=== PATIENT | male | born 1955 | race Two or more races ===

== ENCOUNTER 2024-12-17 07:48 | Inpatient (IN) | payer OTHER ==
[~2024-12-17] VITALS: Ht 162.6 cm; Wt 123.5 kg
[2024-12-17] VITALS (14 sets, daily range): BP systolic 122–155; BP diastolic 54–76; PULSE 73–91; RESP 12–20; TEMP 97.6–98.3; O2SAT 91–99
[2024-12-17] MEDS: BUPIVACAINE W/ EPINEPH 0.5% INJ 50ML MDV IJ ONE (08:01)
[2024-12-17] MEDS: VANCOMYCIN HCL 1000 MG VL ONE (08:02)
[2024-12-17] MEDS: LIDOCAINE W/ EPINEPHRINE 1% 20ML VIAL ONE (08:31)
[2024-12-17] MEDS ORDERED: KETOROLAC TROMETH 30 MG/ML 1ML VIAL ONE (08:50)
[2024-12-17] MEDS ORDERED: MORPHINE SULF PF 5 MG/10 ML VIAL ONE ×2 (08:50→09:00)
[2024-12-17] MEDS ORDERED: fentaNYL CITRATE 100 MCG/2 ML VL ONE (09:00)
[2024-12-17] MEDS ORDERED: PROPOFOL 10 MG/ML 20 ML IV ONE ×2 (09:01→10:27)
[2024-12-17] MEDS: ceFAZolin 2 GM/D5W50ml 50 ML IV ONE (09:05)
[2024-12-17] MEDS: CEFEPIME 1GM/ 50ML 50 ML IV ONE (09:10)
[2024-12-17] MEDS: TRANEXAMIC ACID 20 ML ONE (09:15)
[2024-12-17] MEDS ORDERED: MIDAZOLAM HCL 2MG/2ML 2ml VIAL (1mg/ml) ONE (09:21)
[2024-12-17] MEDS ORDERED: METOCLOPRAMIDE HCL 5MG/ml INJ 2ml VIAL ONE (09:24)
[2024-12-17] MEDS ORDERED: ONDANSETRON HCL 4 MG/2 ML VIAL ONE (09:24)
[2024-12-17] MEDS ORDERED: ePHEDrine SULFATE 50 MG/ML AMP ONE (09:39)
--- NOTE | 2024-12-17 11:09 | DVHOP2 ---
Operative Report - 2 Report Details Date: 12/17/24 Preop Diagnosis: Right knee degenerative arthritis Postop Diagnosis: Right knee degenerative arthritis Surgeon: Annamaria Pink MD Frame Stripper: Ave ROPER Anesthesiologist: Jg neal CRNA Anesthesia: Regional Drains: Amalia closed wound suction Implant: RenéJoy in power knee size 10 femur PS size nine tibia size 10 poly Consent: The patient was informed of the risks and benefits of the procedure. These include but are not limited to complications of anesthesia, postoperative infection, incomplete relief of symptoms, recurrence of symptoms, damage to blood vessels, nerves and tendons, deep venous thrombosis, pulmonary embolism and possible need for repeat surgery in the future. Complications: None Estimated Blood Loss: 25 cc Fluids: See anesthesia record Findings: Varus deformity, osteophytes, denuded cartilage with eburnated bone Indications for Surgery: Right knee degenerative arthritis with severe pain and functional impairment despite nonoperative management Name of Procedure Performed Right total knee arthroplasty Procedure Details Procedure Details: The patient was brought to the operating room and placed on the table in the supine position after being given spinal anesthetic with adequate analgesia obtained. Surgical timeout was performed verifying patient, laterality and procedure Preop patient received IV cefepime IV Ancef and IV tranexamic acid. Tourniquet was applied to the lower extremity. Extremity was elevated, exsanguinated Esmarch, and tourniquet inflated. Lower extremity was prepped and draped in sterile fashion. Midline incision was made followed by medial arthrotomy. I exposed the anterior medial and lateral tibial plateau and the anterior distal femur. Bovie and aqua mantis were used for hemostasis. I excised the anterior meniscal tissue with Bovie. I excised a portion of the fat pad with Bovie. The patella was everted and the knee flexed. I drilled the distal femur and suctioned the hole to reduce the risk of fat emboli. I inserted intramedullary guide with 5 degree valgus setting. I pinned the distal femoral cutting block anteriorly. Intramedullary north was removed. Distal femoral cut was made and the block removed. I brought my attention to the tibia setting up the external cutting jig for the tibia paying attention to slope, rotation and varus valgus alignment. I set the depth and pinned the block. I used the external alignment north to aid in checking alignment. Bone cut was made and bone removed releasing soft tissue attachments with Bovie. Cutting block removed. I then checked the extension gap and deemed adequate and removed the femur and tibia pins. I flexed the knee and applied the femoral sizing guide to the femur. I checked the size and external rotation setting at 90 degrees to Whitesides line and checking the epicondylar axis. I drilled the holes then removed the sizing guide and pin. I then tapped on the 4 in 1 cutting block and checked with the magdalena wing anteriorly to make sure that I would not notch then pinned the block. Cuts were made and the block and pins were removed. Bone was removed with curved osteotome. I used a rongeur to remove any remaining osteophytes at the femur and tibia. I then used a lamina stone spreader operator to open up the back alternating between the medial and lateral side. Any remaining meniscal tissue was excised with scalpel. I used curved osteotome, curette and rongeur to remove any posterior osteophytes. I prophylactically coagulated w ith aqua mantis. I then tapped on the template for the box cut and pinned it. Box cut was made and bone removed. Template and pin removed. I then tapped on the femoral trial. I then brought my attention back to the tibia sizing it. I used the external alignment north to make sure that rotation and alignment were good. I made a Bovie loraine at the tibial tray loraine identifying rotation for later use. I tried various tibial polytrials. The patella tracked nicely without thumb pressure. I removed the trials. I pinned the tray and used the reamer and keel punch. The implants were brought into the field while bone preparation was started. I used both normal saline irrigation and the CarboJet to prepare the bone. Once cement was ready I applied cement to the tibial implant and tibial bone tapped it on and removed excess cement in usual fashion. In similar fashion I tapped on the femoral implant. I inserted the trial polyethylene and brought the knee into 30 degrees flexion. I irrigated with bactisurge irrigant. Once cement cured, I checked stability and range of motion as well as patella tracking. tourniquet was released and hemostasis maintained with aqua mantis. I inserted the polyethylene and again checked stability. I used a 2 grams of vancomycin half of which was placed deep and half superficial. I repaired the extensor mechanism with the knee in flexion with #1 Ethibond interrupted [id number]. Deep subcutaneous tissue was closed with 0 Vicryl. Superficial subcutaneous tissue was closed with 2-0 vicryl interrupted. Skin was closed with robert. I then applied the [amalia closed wound suction]. Patient tolerated the procedure well and was brought to recovery room in stable condition. Condition Stable Disposition Still a Patient ANNAMARIA PINK MD Dec 17, 2024 11:09
[2024-12-17] MEDS ORDERED: ACETAMINOPHEN 325 MG TAB PO PRN (11:15)
[2024-12-17] MEDS: BUPIVACAINE 0.25% INJ 50ML VIAL ONE (11:51)
[2024-12-17] MEDS: ONDANSETRON HCL 4 MG/2 ML VIAL ONE (12:39)
[2024-12-17] MEDS: ONDANSETRON HCL 4 MG/2 ML VIAL IV PRN (12:39)
[2024-12-17] MEDS ORDERED: NALOXONE HCL 0.4 MG/ML VIAL IV PRN (12:45)
--- NOTE | 2024-12-17 12:54 | DVH ---
Indication: postop Technique: 3 views of the right knee Comparison: None FINDINGS/IMPRESSION: Total right knee arthroplasty in anatomic alignment. Expected postoperative changes including surroun ding soft tissue emphysema and edema. Moderate suprapatellar effusion.
[2024-12-17] MEDS: METOCLOPRAMIDE HCL 5MG/ml INJ 2ml VIAL IV PRN (13:06)
[2024-12-17] MEDS: D5W/LACTATED RINGERS 1,000 ML IV SCH (13:07)
[2024-12-17] MEDS: KETOROLAC TROMETH 30 MG/ML 1ML VIAL IV SCH (13:30)
[2024-12-17] MEDS: ACETAMINOPHEN 325 MG TAB PO SCH (13:30)
[2024-12-17] MEDS ORDERED: ceFAZolin 2 GM/D5W50ml 50 ML IV SCH (14:00)
[2024-12-17] MEDS: diphenhdrAMINE HCL 50 MG/1 ML VL IV PRN (14:04)
[2024-12-17] MEDS: ceFAZolin 2 GM/D5W50ml 50 ML IV SCH (17:55)
[2024-12-17] MEDS: PREGABALIN 25 MG CAP PO SCH (21:30)
[2024-12-18] VITALS (23 sets, daily range): BP systolic 124–177; BP diastolic 67–104; PULSE 62–94; RESP 16–20; TEMP 97.9–98.2; O2SAT 90–97
[2024-12-18] MEDS: oxyCODONE HCL 5MG TAB PO PRN ×2 (03:59→09:12)
[2024-12-18 06:22] LABS: Basophils # (auto) 0 10 ^3/uL (0-0.2); Eosinophils # (auto) 0 10 ^3/uL (0-0.8); Hematocrit 41.2 % (41.0-53.0); Lymphocytes % (auto) 9.7 % (10.0-50.0); Mean Corpuscular Hemoglobin 31.7 pg (28.0-32.0); Mean Corpuscular Hgb Conc. 34.1 g/dL (32.0-36.0); Mean Corpuscular Volume 92.8 fL (80.0-100.0); Monocytes # (auto) 0.7 10 ^3/uL (0-1.3); Monocytes % (auto) 6.8 % (0.0-12.0); Neutrophils # (auto) 8.4 10 ^3/uL (1.6-8.6); Neutrophils % (auto) 83.5 % (37.0-80.0); Platelet Count (auto) 208 10^3/uL (140-450); Red Blood Cells 4.43 10^6/uL (4.5-5.90); Red Cell Distribution Width 14.1 % (11.8-14.3)
[2024-12-18 06:25] LABS: Anion Gap 12 (5-15); Carbon Dioxide 23 mmol/L (20-31); Chloride 106 mmol/L (98-107); Potassium 4.4 mmol/L (3.5-5.1); Sodium 141 mmol/L (136-145)
[2024-12-18 06:26] LABS: Calcium 9.3 mg/dL (8.7-10.4)
[2024-12-18 06:31] LABS: BUN/Creatinine Ratio 24.2 (10.0-20.0); Blood Urea Nitrogen 22 mg/dL (9-23); Glucose 154 mg/dL (74-106)
[2024-12-18] MEDS: ASPirin 81 mg TAB PO SCH (09:07)
--- NOTE | 2024-12-18 13:28 | DVHDS2 ---
Discharge Summary Date of Admission Dec 17, 2024 at 11:04 Date of Discharge: Dec 18, 2024 Labs/Diagnostic Data: Laboratory Results Test 12/18/24 05:45 White Blood Count 10.0 10^3/uL (4.4-10.8) Red Blood Count 4.43 10^6/uL (4.5-5.90) Hemoglobin 14.0 g/dL (13.5-17.5) Hematocrit 41.2 % (41.0-53.0) Mean Corpuscular Volume 92.8 fL (80.0-100.0) Mean Corpuscular Hemoglobin 31.7 pg (28.0-32.0) Mean Corpuscular Hemoglobin Concent 34.1 g/dL (32.0-36.0) Red Cell Distribution Width 14.1 % (11.8-14.3) Platelet Count 208 10^3/uL (140-450) Mean Platelet Volume 8.9 fL (6.9-10.8) Neutrophils (%) (Auto) 83.5 % (37.0-80.0) Lymphocytes (%) (Auto) 9.7 % (10.0-50.0) Monocytes (%) (Auto) 6.8 % (0.0-12.0) Eosinophils (%) (Auto) 0.0 % (0.0-7.0) Basophils (%) (Auto) 0.0 % (0.0-2.0) Neutrophils # (Auto) 8.4 10 ^3/uL (1.6-8.6) Lymphocytes # (Auto) 1.0 10 ^3/uL (0.4-5.4) Monocytes # (Auto) 0.7 10 ^3/uL (0-1.3) Eosinophils # (Auto) 0 10 ^3/uL (0-0.8) Basophils # (Auto) 0 10 ^3/uL (0-0.2) Nucleated Red Blood Cells 0.0 % Sodium Level 141 mmol/L (136-145) Potassium Level 4.4 mmol/L (3.5-5.1) Chloride Level 106 mmol/L (98-107) Carbon Dioxide Level 23 mmol/L (20-31) Anion Gap 12 (5-15) Blood Urea Nitrogen 22 mg/dL (9-23) Creatinine 0.91 mg/dL (0.700-1.30) Glomerular Filtration Rate Calc 92 mL/min (>90) BUN/Creatinine Ratio 24.2 (10.0-20.0) Serum Glucose 154 mg/dL (74-106) Calcium Level 9.3 mg/dL (8.7-10.4) Other Laboratory Tests 12/18/24 05:45 Brief Hx & Hospital Course: Patient was brought to the hospital yesterday to undergo a right total knee arthroplasty. He tolerated the procedure well without complications and was kept overnight for postoperative observation. He has remained medically stable denying any overnight events and reports some postoperative knee pain that is being well managed with the help of pain medication. Patient reports that he was able to get up and walk with the help of physical therapy and his walker and was able to get down the neal around the nurses station back to his room with minimal pain. Patient is ready to go home. Condition at Discharge: Stable Final Diagnosis/Problems List Right knee degenerative arthritis Discharge Disposition: Home (Patient to be considered for home health as he is going home for further assistance during the acute phase of his recovery) Discharge Instruct/Medications Diet: Regular Activity: See Comment Activity comment: WBAT with the assistance of a walker Follow Up/Referral: Patient to follow up with our office in 10-14 days for his 1st postoperative evaluation Medications: Rx sent via our EMR system Discharge Statement: "Patient was advised to return to the ER or call 911 if any headaches, dizziness, shortness of breath, chest pain, abdominal pain, bleeding, fevers, or worsening of medical condition. Patient was counseled about treatment plan, medications, possible side effects, patientverbalized understanding. All questions were answered to the best of my ability. This discharge took greater then 30 minutes in planning, reviewing documentation, counseling the patient, and discussing with other team members." ASSESSMENT ASSESSMENT Assessment Right knee degenerative arthritis SOFI BARBER Dec 18, 2024 13:28
--- NOTE | 2024-12-18 13:29 | DVHPN2 ---
Progress Note - Dictate Date Seen: Dec 18, 2024 Medical Necessity Reason Pt with a Central, PICC or Fol: No Subjective Patient was lying comfortably in bed during my evaluation reports some postoperative knee pain that is being well managed with the help of pain medication. Patient reports that he was able to get up and walk with the help of physical therapy and his walker and was able to get down the neal and around the nurses station and back to his room with his pain being well controlled. Patient is otherwise feeling well denying any other complaints or concerns during my evaluation and would like to go home. vital signs Vital Sign Date Time Temp Pulse Resp B/P (MAP) Pulse Ox O2 Delivery O2 Flow Rate FiO2 12/18/24 11:21 78 18 95 12/18/24 09:00 98.0 153/73 (99) 98.0 12/18/24 08:00 Nasal Cannula* 2 28 Total Intake and Output 12/17/24 12/17/24 12/18/24 15:00 23:00 07:00 Intake Total 220 ml 200 ml 300 ml Output Total 150 ml 400 ml Balance 70 ml 200 ml -100 ml medications Current Medications Medications Dose Ordered Sig/Marin Route Start Time Stop Time Status Last Admin Dose Admin Acetaminophen 650 mg Q4HP PRN PO 12/17/24 11:15 Acetaminophen 650 mg Q6HR PO 12/17/24 12:00 12/18/24 12:22 650 MG Ketorolac Tromethamine 15 mg Q6HR IV 12/17/24 12:00 12/22/24 11:59 12/18/24 12:23 15 MG Pregabalin 50 mg BID PO 12/17/24 22:00 12/18/24 09:08 50 MG Oxycodone HCl 5 mg Q4HP PRN PO 12/17/24 11:15 12/18/24 03:59 5 MG Oxycodone HCl 10 mg Q4HP PRN PO 12/17/24 11:15 12/18/24 09:12 10 MG Aspirin 81 mg BID PO 12/18/24 10:00 12/18/24 09:07 81 MG Diphenhydramine HCl 25 mg Q4HP PRN IV 12/17/24 12:45 12/17/24 14:04 25 MG Ondansetron HCl 4 mg Q4HP PRN IV 12/17/24 12:45 12/17/24 17:56 4 MG Metoclopramide HCl 10 mg ONCE PRN IV 12/17/24 12:45 12/17/24 13:06 10 MG objective A&O x4 in no acute distress Knee range of motion grossly limited with pain on movement Fredo dressing clean, dry, intact, and maintaining suction No distal edema or calf tenderness to palpation Neurovascularly intact with cap refill less than 2 seconds laboratory and microbiology Laboratory Tests 12/18/24 05:45 Test 12/18/24 05:45 Range/Units Serum Glucose 154 H 74-106 mg/dL Assessment/Plan Patient to be discharged home and advised him to remain weight-bearing as tolerated with the assistance of a walker and to follow up with our office in 10-14 days for his 1st postoperative evaluation. I also advised the patient to maintain his dressings clean, dry, intact, and maintaining suction and to call our office if he has any questions or concerns. Rx sent via our outpatient EMR system. Patient understood and agreed. Plan discussed with: Patient SOFI BARBER Dec 18, 2024 13:29
--- NOTE | 2024-12-18 16:54 | DVHINCON2 ---
Date Seen: Dec 17, 2024 Referring Physician Orthopedic surgeon. History of Present Illness 69-year-old male with a known history of diabetes mellitus type 2 diet controlled, chronic degenerative joint disease of the right knee who was brought in by Orthopedics for right knee surgery. Patient is status post right total knee arthroplasty. Patient is currently denies any polydipsia polyuria polyphagia. Past Medical History Diabetes type 2 diet controlled. Degenerative joint disease of the right knee. Past Surgical History Status post right total knee arthroplasty. Family History: Cardiovascular disease Cerebrovascular accident (CVA) G8 MOTHER Diabetes mellitus G8 MOTHER FH: cancer G8 FATHER Allergies: Coded Allergies: NO KNOWN ALLERGIES (Unverified , 12/13/24) Home Meds No Active Prescriptions or Reported Meds Current Medications Current Medications Medications (Trade) Dose Ordered Sig/Marin Route PRN Reason Start Time Stop Time Status Last Admin Pregabalin (Lyrica Capsule) 50 mg BID PO 12/17/24 22:00 12/18/24 09:08 Aspirin 81 mg BID PO 12/18/24 10:00 12/18/24 09:07 Cefazolin Sodium/ Dextrose 50 ml @ 50 mls/hr Q8HR IV 12/17/24 17:00 12/17/24 22:59 DC 12/17/24 21:32 Review of Systems Twelve review of system are negative besides mentioned above. Vital Signs Vital Signs Date Time Temp Pulse Resp B/P (MAP) Pulse Ox O2 Delivery O2 Flow Rate FiO2 12/18/24 16:22 98.0 76 20 93 12/18/24 13:00 164/74 (104) 12/18/24 08:00 Nasal Cannula* 2 28 Physical Exam HEENT pupils are reactive Neck is supple CV is S1-S2 regular rate and rhythm Respiratory bilateral clear GI positive bowel sound Extremity no edema [employer] no motor deficit Labs/Diagnostic Data Labs Test 12/18/24 05:45 Range/Units White Blood Count 10.0 4.4-10.8 10^3/uL Red Blood Count 4.43 L 4.5-5.90 10^6/uL Hemoglobin 14.0 13.5-17.5 g/dL Hematocrit 41.2 41.0-53.0 % Mean Corpuscular Volume 92.8 80.0-100.0 fL Mean Corpuscular Hemoglobin 31.7 28.0-32.0 pg Mean Corpuscular Hemoglobin Concent 34.1 32.0-36.0 g/dL Red Cell Distribution Width 14.1 11.8-14.3 % Platelet Count 208 140-450 10^3/uL Mean Platelet Volume 8.9 6.9-10.8 fL Neutrophils (%) (Auto) 83.5 H 37.0-80.0 % Lymphocytes (%) (Auto) 9.7 L 10.0-50.0 % Monocytes (%) (Auto) 6.8 0.0-12.0 % Eosinophils (%) (Auto) 0.0 0.0-7.0 % Basophils (%) (Auto) 0.0 0.0-2.0 % Neutrophils # (Auto) 8.4 1.6-8.6 10 ^3/uL Lymphocytes # (Auto) 1.0 0.4-5.4 10 ^3/uL Monocytes # (Auto) 0.7 0-1.3 10 ^3/uL Eosinophils # (Auto) 0 0-0.8 10 ^3/uL Basophils # (Auto) 0 0-0.2 10 ^3/uL Nucleated Red Blood Cells 0.0 % Sodium Level 141 136-145 mmol/L Potassium Level 4.4 3.5-5.1 mmol/L Chloride Level 106 98-107 mmol/L Carbon Dioxide Level 23 20-31 mmol/L Anion Gap 12 5-15 Blood Urea Nitrogen 22 9-23 mg/dL Creatinine 0.91 0.700-1.30 mg/dL Glomerular Filtration Rate Calc 92 >90 mL/min BUN/Creatinine Ratio 24.2 H 10.0-20.0 Serum Glucose 154 H 74-106 mg/dL Calcium Level 9.3 8.7-10.4 mg/dL Assessment 69-year-old male with a known history of diabetes type 2 diet controlled, chronic degenerative joint disease of the right knee. He is here for elective surgery. 1. Diabetes type 2, diet controlled, diabetic education 2. Right knee degenerative joint disease 3. Status post right total knee arthroplasty -pain meds as needed, physical therapy evaluation and treatment, discharge plan per Orthopedics. Plan discussed with: Patient Date of Service: Dec 17, 2024 Billing Provider: REYNA WEBB MD Common Visit Codes: NOT BILLABLE REYNA WEBB MD Dec 18, 2024 16:54
== END 2024-12-18 17:50 | disposition home or self-care (01) | DRG 470 ==
LOC: SUR 07:48 → OVERFLOW 11:04 → TELE-WESTW 15:05
PROVIDERS: ADMIT Orthopaedic Surgery; ATTEND Orthopaedic Surgery
PROC: 0SRC0J9 Replacement of Right Knee Joint with Synthetic Substitute, Cemented, Open Approach (ICD-10-PCS; principal; 2024-12-17 09:01)
DX: M17.11 Unilateral primary osteoarthritis, right knee (principal); M21.161 Varus deformity, not elsewhere classified, right knee; E11.9 Type 2 diabetes mellitus without complications; Z83.3 Family history of diabetes mellitus; Z82.49 Family history of ischemic heart disease and other diseases of the circulatory system; Z82.3 Family history of stroke; Z79.899 Other long term (current) drug therapy
CPT/HCPCS: 36415; 73562; 80048; 85025; 86850; 86900; 86901; 97163; G0378; J1885; J2250; J2405; J2704; J3490